=== PATIENT | male | born 1980 | race African-American/Black ===

== ENCOUNTER 2024-10-27 10:05 | Emergency (ER) | payer OTHER, SELFPAY ==
[2024-10-27 10:13] VITALS: BP 182/94; PULSE 67; RESP 16; TEMP 36.5; O2SAT 99
--- NOTE | 2024-10-27 10:44 | ED.EYEPROB ---
HPI - Eye Problem General Chief complaint: Eye Problems Stated complaint: poss pink eye Source: patient Mode of arrival: ambulatory Limitations: no limitations History of Present Illness HPI Narrative: 43-year-old male history of hypertension presented for complaint of left eye irritation. He said he woke with redness, burning and some blurred vision this morning. Endorses clear watery drainage. Patient used his son's leftover pinkeye prescription drops which helped with irritation. Denies significant eye pain, nausea, vomiting or headache. MD chief complaint: eye pain Related Data Home Medications ?Medication ?Instructions ?Recorded ?Confirmed ?Last Taken ?Type amlodipine 5 mg tablet mg 10/27/24 Unknown History Allergies Allergy/AdvReac Type Severity Reaction Status Date / Time No Known Allergies Allergy Verified 10/27/24 10:35 Review of Systems Review of Systems: CONSTITUTIONAL: Denies body aches, fever, chills EYES:Endorses blurred vision, drainage and redness to left eye Denies visual changes swelling, FB sensation, photophobia ENT: Denies rhinorrhea, congestion, sore throat, or otalgia. CARDIOVASCULAR: Denies chest pain, palpitations RESPIRATORY: Denies cough or dyspnea. SKIN: Denies rash, itching, or wounds. NEUROLOGIC: Denies headache All systems reviewed & are unremarkable except as noted in HPI and below PMFSH Past Medical History Medical History (Updated 10/27/24 @ 10:58 by Cynthia Oropeza, YOSSI) Hypertension Comments At time of signature, I have reviewed and agree with nursing past medical, surgical, social and family history unless otherwise noted. Please see nursing chart for further information. There is no relevant family history pertinent to the presenting complaint Exam Narrative: GENERAL: Well-appearing HEAD: Normocephalic, atraumatic. EYES: mild left conjunctival injection, No discharge, no eye lid swelling. PERRLA EOMI. Lid eversion Shows no foreign body ENT: Mucous membranes pink and moist. No rhinorrhea. TMs normal bilaterally. Throat normal. Uvula midline. CHEST: Clear to auscultation. HEART: Regular rate and rhythm. SKIN: Warm, dry, no rash. Normal skin turgor. NEURO: No focal deficits. Alert and oriented x3 PSYCH: Normal affect. Course Course Emergency Course: Patient is aware of diagnosis, understands and agrees to treatment plan. Anticipatory guidance given. Patient agrees to follow-up as directed and is aware of reasons to seek care at the emergency department. Portions of this record may have been created with voice recognition software Level of Care: Express Care Visit Vital Signs Vital signs: Vital Signs Temperature 97.7 F 10/27/24 10:13 Pulse Rate 67 10/27/24 10:13 Respiratory Rate 16 10/27/24 10:13 Blood Pressure 182/94 H 10/27/24 10:13 Pulse Oximetry 99 10/27/24 10:13 Oxygen Delivery Room Air 10/27/24 10:13 Temperature 97.7 F 10/27/24 10:13 Pulse Rate 67 10/27/24 10:13 Respiratory Rate 16 10/27/24 10:13 Blood Pressure 182/94 H 10/27/24 10:13 Pulse Oximetry 99 10/27/24 10:13 Oxygen Delivery Room Air 10/27/24 10:13 MDM - Eye Problem MDM Narrative Medical decision making narrative: Discussed physical exam findings and reviewed rx. Discussed elevated bp reading and advised f/u with pcp. Says he took bp meds this morning but was 'upset.' Advised supportive measures and signs/symptoms to go to the ER. Pt is appropriate for outpt treatment and f/u. Differential Diagnosis Differential diagnosis: Likely corneal abrasion, conjunctivitis, acute iritis and other Discharge Plan Discharge Clinical Impression: Bacterial conjunctivitis Patient Disposition: Home Condition: Stable Instructions: Antibiotic Form Additional Instructions: Your blood pressure reading was elevated (above 120/80) please follow-up with your primary care provider for further evaluation and management. If you develop worsening Blood Pressure symptoms, (headache, vision changes, dizziness, vomiting, chest pain, etc) go to the ER. Call 911. Avoid touching or rubbing your eye. Use over the counter lubricating eye drops as needed for irritation Use a warm or cool washcloth on your eye for comfort Use eyedrops as directed - you are contagious for 24 hours after starting the antibiotic Practice good handwashing and hygiene to prevent spread of infection You may take Tylenol or ibuprofen for pain Follow-up with PCP or water control supervisor if condition is not improving in 2-3days. Go to the emergency room if you have severe pain or pressure behind your eye, difficulty seeing, or other severe symptoms Patient Language: Dominican Prescriptions: New polymyxin B sulf-trimethoprim 10,000 unit- 1 mg/mL drops 1 drp LEFT EYE Q3H 7 Days Qty: 10 0RF Rx Instructions: while awake; do not exceed 6 doses in 24 hours No Action amlodipine 5 mg tablet Follow-up/Referrals: Johana,MD Nithin [Primary Care Provider, Unknown] Time of Disposition: 10:52
--- OUTSIDE RECORDS SUMMARY | 2024-10-27 10:49 | XMS_ITS | Clinical Summary ---
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 life-threatening deterioration of the following conditions: Small bowel obstruction. Critical care was time spent personally by me on the following activities: Development of treatment plan with patient or surrogate, obtaining history from patient or surrogate, examination of patient, evaluation of patient's response to treatment, ordering and performing treatments and interventions, ordering and review of laboratory studies, ordering and review of radiographic studies, pulse oximetry, re-evaluation of patient's condition and review of old charts I assumed direction of critical care for this patient from another provider in my specialty: no Care discussed with: admitting provider us Bradley Berry MD PROCEDURE/MINOR SURGICAL ORDERABLES Final Result from Last 3 Months Insurance * Guarantor: Cash [employer] Account Type Relation to Patient Date of Phone Billing Address Personal/Family Self 1980 [address] [place] [address] [place]ID [place] Advance Directives * Full Code (Latest Code Status on File) Date Activated Date Inactivated Comments 09/14/2024 6:16 AM CPR-Full Treat ment: FULL ARREST: Attempt Resuscitation/CPR wit intubation and mechanical ventilation. PRE-ARREST: Use entire range of life support measures to stabilize the patient. Care Teams Route Driver Relationship Specialty Start Date End Date Nithin Vaughn MD [address] [place] [address] [address] PCP - General Backpackers Manager 12/06/23 Luca Fisher, YOSSI, [employer] [address] [place] [address] Nurse Practitioner Advanced Practice Nurse 12/15/23
--- OUTSIDE RECORDS SUMMARY | 2024-10-27 10:50 | XMS_ITS | Encounter Summary ---
Author Organization [facility] Address [address] [place] [address] Phone Care Team Providers Care Managing Partner Name Role Phone Nithin Vaughn MD Primary Care Provider [phone] Luca Fisher APRN, CAR GROOMER Unavailable + [phone] Reason for Visit * Reason Comments Medication Refill Encounter Details Date Type Department Care Team (Late st Contact Info) Description 02/16/2024 Refill [facility] [address] [place] [address] Luca Fisher APRN, CAR GROOMER [address] [place] [address] Medication Refill Social History Tobacco Use Types Packs/Day Years Used Date Smoking Tobacco: Former Cigarettes Smokeless Tobacco: Never Alcohol Use Standard Drinks/Week Comments Yes 0 (1 standard drink = 0.6 oz pur e alcohol) socially Sex and Gender Information Value Date Recorded Sex Assigned at Not on file Legal Sex Male 12:03 AM CDT Gender Identity Not on file Sexual Orientation Not on file documented as of this encounter Plan of Treatment Not on file documented as of this encounter Visit Diagnoses Diagnosis Nocturia OAB (overactive bladder) Hypertonicity of bladder documented in this encounter Care Teams Managing Partner Relationship Specialty Start Date End Date Nithin Vaughn MD [address] [place] [address] PCP - General Environmental Intern 12/06/23 Luca Fisher APRN, CAR GROOMER [address] [place] [address] Nurse Practitioner Advanced Practice Nurse 12/15/23 documented as of this encounter
--- OUTSIDE RECORDS SUMMARY | 2024-10-27 10:50 | XMS_ITS | Clinical Summary ---
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 been cleared or approved by the U.S. Food and Drug Administration. Test Performed by: [facility] - [address] [address] [employer]: Jersey Wilson Ph.D.; CLIA# [id number] Blood 08/03/2024 2:58 PM CDT 08/03/2024 4:29 PM CDT Nithin Vaughn MD LAB BLOOD ORDERABLES Final Resul t [facility]N [facility] ([place]) [address] [facility] [place] [address] [facility] ref Lab * (ABNORMAL) Vitamin B6 (08/03/2024 2:58 PM CDT) Pathologist [facility] Pyridoxal phosphate (Vit B6) 128(H) 5 - 50 mcg/L [facility] ref Lab Comment: In this sample, the increased pyridoxal 5-phosphate is likely related to dietary supplementation; however a mild expression of hypophosphatasia cannot be excluded. Consider analysis of serum alkaline phosphatase isoenzymes and urinary phosphoethanolamine. ADDITIONAL INFORMATION This test was developed and its performance characteristics determined by [facility] in a manner consistent with CLIA requirements. This test has not been cleared or approved by the U.S. Food and Drug Administration. Test Performed by: [facility] [place] [address] [employer]: Jersey Wilson Ph.D.; CLIA# [id number] Blood 08/03/2024 2:58 PM CDT 08/03/2024 4:29 PM CDT Nithin Vaughn MD LAB BLOOD ORDERABLES Final Resul t [facility] ([place]) 1 [facility] [place] [address] [facility] ref Lab * Phosphorus (08/03/2024 2:58 PM CDT) Pathologist [facility] Phosphorus, pl 3.5 2.3 - 4.5 mg/dL Blood 08/03/2024 2:58 PM CDT 08/03/2024 4:29 PM CDT us Nithin Vaughn MD LAB BLOOD ORDERABLES Final Resul t [facility] RE[facility] ([place]) [address] [facility] [place] [address] * Magnesium (08/03/2024 2:58 PM CDT) Magnesium 1.8 1.4 - 2.5 mg/dL Blood 08/03/2024 2:58 PM CDT 08/03/2024 4:29 PM CDT Nithin Vaughn MD LAB BLOOD ORDERABLES Final Resul t [facility] ([place]) [address] [facility] [place] [address] * Vitamin B12 (08/03/2024 2:58 PM CDT) Pathologist [facility] Vitamin B12 425 230 - 1,250 pg/mL Blood 08/03/2024 2:58 PM CDT 08/03/2024 4:29 PM CDT us Nithin Vaughn MD LAB BLOOD ORDERABLES Final Resul t [facility] ([place]) [address] 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 Testing performed by: [facility], [address] [place] [address], [place]., [address] Blood 04/14/2021 9:30 AM BUSINESS MANAGEMENT PROFESSOR 04/14/2021 12:21 PM BUSINESS MANAGEMENT PROFESSOR us Nithin Vaughn MD LAB BLOOD ORDERABLES Final Resul t [facility] ([place]) 1 [facility] Department [place] [address] from Last 3 Months or Most Recently Relevant to Health Maintenance Insurance [facility] Member Subscriber Plan / Payer (Ef fective 2021-Present) Name:Cash Tyler Relation to Subscriber:Self Name:Cash Tyler Payer ID:[id number] (NAIC) Type:MEDICAID RISK OTHER Address: [place] [id number] 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
[2024-10-27 11:07] VITALS: BP 143/94; PULSE 66
== END 2024-10-27 11:07 | disposition home or self-care (01) ==
PROVIDERS: Emergency Provider Nurse Practitioner Family; PCP Family Medicine
DX: H10.9 Unspecified conjunctivitis (principal); I10 Essential (primary) hypertension
CPT/HCPCS: 99213; G0463